=== PATIENT | male | born 1980 | race African-American/Black ===

== ENCOUNTER 2023-06-10 21:01 | Emergency (ER) | payer MEDICAID, OTHER ==
[~2023-06-10] VITALS: Ht 190.5 cm; Wt 90.0 kg
[2023-06-10 21:09] VITALS: O2SAT 100
[2023-06-10] MEDS ORDERED: METHYLPREDNISOLONE SOD SUCC 125MG/2ML (ACT-O-VIAL) IV STA (21:40)
[2023-06-10] MEDS ORDERED: IPRATROPIUM BROMIDE (0.02%) 0.5MG/2.5ML NEB HHN STA (21:40)
[2023-06-10] MEDS ORDERED: MAGNESIUM 2 G PREMIX 50 ML IV ONE (21:45)
[2023-06-10] MEDS ORDERED: LORAZEPAM 1MG TABLET PO ONE (21:45)
[2023-06-10] MEDS ORDERED: ASPIRIN 81MG TABLET PO ONE (21:45)
[2023-06-10] MEDS ORDERED: ALBUTEROL (0.083%) 2.5MG/3ML NEB HHN SCH (22:00)
[2023-06-10 22:04] LABS: BASOPHILS % 0.6 % (0.0-2.0); EOSINOPHILS % 3.2 % (0.0-5.0); HEMATOCRIT. 36.7 % (42.0-52.0); HEMOGLOBIN. 12.7 g/dL (14.0-18.0); LYMPHOCYTES % 40.8 % (20.0-50.0); MEAN CORPUSCULAR HEMOGLOBIN 30.7 pg (28.0-32.0); MEAN CORPUSCULAR HGB CONC 34.6 g/dL (31.0-37.0); MEAN CORPUSCULAR VOLUME 88.8 fL (80.0-94.0); MEAN PLATELET VOLUME 7.9 fl (7.4-10.4); NEUTROPHILS % 45.4 % (40.0-76.0); PLATELET 201 x1000/uL (130-400); RED BLOOD CELL COUNT 4.14 mill/uL (4.7-6.1); RED CELL DISTRIBUTION WIDTH 13.3 % (11.6-14.6); WHITE BLOOD COUNT 5.8 x1000/uL (4.5-11.0)
[2023-06-10 22:11] LABS: PROTHROMBIN TIME 11.1 sec (9.6-11.0)
[2023-06-10 22:16] LABS: ALANINE AMINOTRANSFERASE 21 IU/L (10-49); ALBUMIN 3.6 g/dL (3.2-4.8); ASPARTATE AMINOTRANSFERASE 33 IU/L (<34); BILIRUBIN TOTAL 0.3 mg/dL (0.1-1.0); CALCIUM 8.6 mg/dL (8.7-10.4); CARBON DIOXIDE 28 mEq/L (21-32); CHLORIDE 108 mEq/L (98-107); GLUCOSE 106 mg/dL (70-105); POTASSIUM 3.8 mEq/L (3.5-5.1); PROTEIN TOTAL 6.9 g/dL (6.0-8.3); SODIUM 143 mEq/L (136-145); TROPONIN I HIGH SENSITIVITY 6 ng/L (3.0-53); UREA NITROGEN BLOOD 22 mg/dL (9-23)
[2023-06-11 06:35] VITALS: BP 144/84; PULSE 84; RESP 19; TEMP 98
== END 2023-06-11 06:34 | disposition short-term general hospital (02) ==
LOC: ER 21:01
DX: J45.909 Unspecified asthma, uncomplicated (principal); R07.89 Other chest pain
CPT/HCPCS: 80053; 85025; 85610; 84484; 36415; 71045; 93005; 96365; 96375; 99291; Z7610 ×3; J3475; J2930

== ENCOUNTER 2024-01-04 00:10 | Emergency (ER) | payer OTHER ==
[~2024-01-04] VITALS: Ht 185.4 cm; Wt 79.0 kg
[2024-01-04 01:16] LABS: BASOPHILS % 0.5 % (0.0-2.0); EOSINOPHILS % 3.1 % (0.0-5.0); HEMATOCRIT. 44.1 % (42.0-52.0); HEMOGLOBIN. 14.3 g/dL (14.0-18.0); LYMPHOCYTES % 31.6 % (20.0-50.0); MEAN CORPUSCULAR HEMOGLOBIN 30.2 pg (28.0-32.0); MEAN CORPUSCULAR HGB CONC 32.4 g/dL (31.0-37.0); MEAN CORPUSCULAR VOLUME 93.2 fL (80.0-94.0); MEAN PLATELET VOLUME 8.5 fl (7.4-10.4); MONOCYTES % 7.9 % (2.0-8.0); NEUTROPHILS % 56.9 % (40.0-76.0); PLATELET 180 x1000/uL (130-400); RED BLOOD CELL COUNT 4.73 mill/uL (4.7-6.1); RED CELL DISTRIBUTION WIDTH 13.8 % (11.6-14.6); WHITE BLOOD COUNT 4.8 x1000/uL (4.5-11.0)
[2024-01-04 01:17] LABS: CHLORIDE 107 mEq/L (98-107); POTASSIUM 4.1 mEq/L (3.5-5.1); SODIUM 142 mEq/L (136-145)
[2024-01-04 01:18] LABS: CARBON DIOXIDE 31 mEq/L (21-32)
[2024-01-04] MEDS: METHYLPREDNISOLONE SOD SUCC 125MG/2ML (ACT-O-VIAL) IV STA (01:21)
[2024-01-04] MEDS: SODIUM CHLORIDE 0.9% 1,000 ML IV ONE (01:22)
[2024-01-04] MEDS: MAGNESIUM 2 G PREMIX 50 ML IV ONE (01:22)
[2024-01-04 01:23] LABS: GLUCOSE 80 mg/dL (70-105); UREA NITROGEN BLOOD 15 mg/dL (9-23)
[2024-01-04 01:24] LABS: TROPONIN I HIGH SENSITIVITY 6 ng/L (3.0-53)
[2024-01-04 01:28] VITALS: PULSE 84; RESP 18; O2SAT 99
[2024-01-04] MEDS: IPRATROPIUM BROMIDE (0.02%) 0.5MG/2.5ML NEB HHN STA (01:28)
[2024-01-04] MEDS: ALBUTEROL (0.083%) 2.5MG/3ML NEB HHN SCH (01:28)
[2024-01-04 01:50] VITALS: PULSE 92; RESP 18; O2SAT 99
[2024-01-04 02:12] VITALS: PULSE 82; RESP 18; O2SAT 99
[2024-01-04 05:51] LABS: *AMPHETAMINES SCREEN URINE NEGATIVE (NEGATIVE); *BARBITURATES SCREEN URINE NEGATIVE (NEGATIVE); *BENZODIAZEPINES SCREEN URINE NEGATIVE (NEGATIVE); *COCAINE SCREEN URINE PRESUMPTIVE POSITIVE (NEGATIVE); CANNABINOID URINE SCREEN NEGATIVE (NEGATIVE); ECSTASY MDMA SCREEN URINE NEGATIVE (NEGATIVE); METHADONE URINE SCREEN NEGATIVE (NEGATIVE); OPIATES URINE SCREEN NEGATIVE (NEGATIVE); PHENCYCLIDINE URINE SCREEN NEGATIVE (NEGATIVE)
[2024-01-04 06:05] VITALS: BP 125/89; PULSE 98; RESP 18; TEMP 98
[2024-01-04] MEDS ORDERED: ACETAMINOPHEN 325MG TABLET PO PRN ×2 (06:30)
[2024-01-04] MEDS ORDERED: CLONIDINE 0.1MG TABLET PO PRN (06:30)
[2024-01-04] MEDS ORDERED: GUAIFENESIN 200MG/10ML SUGAR FREE UDC PO PRN (06:30)
[2024-01-04] MEDS ORDERED: MAGNESIUM/ALUMINUM HYDROXIDE/SIMETHICONE 30ML UDC PO PRN (06:30)
[2024-01-04] MEDS ORDERED: ONDANSETRON HCL 4MG/2ML INJ IV PRN (06:30)
[2024-01-04] MEDS ORDERED: IPRATROPIUM/ALBUTEROL 0.5-3(2.5)MG/3ML NEB HHN PRN (06:30)
[2024-01-04] MEDS ORDERED: DOCUSATE SODIUM 100MG CAPSULE PO PRN (06:30)
[2024-01-04 06:40] LABS: BG BASE EXCESS 5.9 mmol/L (-2.0-2.0); BG CARBOXYHEMOGLOBIN 3.6 % (0.5-1.5); BG DEOXYHEMOGLOBIN 18.3 % (0.0-5.0); BG FRACTION INSPIRED OXYGEN 21; BG HCO3 ACT 33.6 mmol/L (22.0-26.0); BG METHEMOGLOBIN 0.3 % (0.0-1.5); BG OXYHEMOGLOBIN 77.8 % (94.0-97.0); BG PCO2 61.6 mmHg (35.0-45.0); BG PH 7.354 (7.350-7.450); BG PO2 46.2 mmHg (75.0-100.0); BG SAMPLE SITE RIGHT RADIAL; BG TOTAL HEMOGLOBIN 14.9 g/dL (12.0-18.0); BG VENT MODE ROOM AIR
[2024-01-04] MEDS: AZITHROMYCIN 500MG/250ML 250 ML IV SCH (06:57)
[2024-01-04] MEDS ORDERED: MVI, ADULT NO.1 10 ML, FOLIC ACID 1 MG, THIAMINE HCL 100 MG in SODIUM CHLORIDE 0.9% 1,0... IV ONE (08:00)
[2024-01-04] MEDS ORDERED: IPRATROPIUM/ALBUTEROL 0.5-3(2.5)MG/3ML NEB HHN SCH (12:00)
[2024-01-04] MEDS ORDERED: METHYLPREDNISOLONE SOD SUCC 125MG/2ML (ACT-O-VIAL) IV SCH (14:00)
== END 2024-01-04 07:45 | disposition short-term general hospital (02) ==
LOC: ER 00:10 → CANBEDREQ 07:44 → ER 07:45
DX: J96.91 Respiratory failure, unspecified with hypoxia (principal); J45.901 Unspecified asthma with (acute) exacerbation; F12.90 Cannabis use, unspecified, uncomplicated
CPT/HCPCS: 80305; 80048; 83880; 83605; 85025; 84484; 36415; 71045; 70450; 94640; 82805; 82375; 93005; 96367; 96365; 96366; 96375; 99291; 36600; J0456; J3475; J2919; Z7610 ×4; J7030; J3411; J3490

== ENCOUNTER 2024-01-21 23:43 | Emergency (ER) | payer OTHER ==
[~2024-01-21] VITALS: Ht 182.9 cm; Wt 80.0 kg
[2024-01-21 23:47] VITALS: TEMP 98.2
[2024-01-22 01:05] VITALS: PULSE 88; RESP 18; O2SAT 97
[2024-01-22] MEDS: ALBUTEROL (0.083%) 2.5MG/3ML NEB HHN SCH (01:06)
[2024-01-22] MEDS: IPRATROPIUM BROMIDE (0.02%) 0.5MG/2.5ML NEB HHN STA (01:06)
[2024-01-22] MEDS: MAGNESIUM 2 G PREMIX 50 ML IV ONE (01:28)
[2024-01-22] MEDS: METHYLPREDNISOLONE SOD SUCC 125MG/2ML (ACT-O-VIAL) IV STA (01:28)
[2024-01-22] MEDS: LORAZEPAM 2MG/ML INJ IV ONE (01:28)
[2024-01-22] MEDS: METHYLPREDNISOLONE SOD SUCC 125MG/2ML (ACT-O-VIAL) IV NR (03:54)
[2024-01-22] MEDS: MAGNESIUM 2 G PREMIX 50 ML IV NR (03:54)
[2024-01-22] MEDS ORDERED: P20 MT (04:00)
[2024-01-22] MEDS: LORAZEPAM 2MG/ML INJ IV NR (04:11)
[2024-01-22] MEDS ORDERED: ALBU6.7H15 INH (04:51)
[2024-01-22 05:09] VITALS: BP 134/86; PULSE 85; RESP 16; O2SAT 95
== END 2024-01-22 05:16 | disposition home or self-care (01) ==
LOC: ER 23:45
DX: J45.901 Unspecified asthma with (acute) exacerbation (principal); F12.10 Cannabis abuse, uncomplicated
CPT/HCPCS: 99291; 71045; 94644; 96365; 96375; Z7610 ×4; J3475; J2919; 94640

== ENCOUNTER 2024-02-20 22:50 | Emergency (ER) | payer OTHER ==
[~2024-02-20] VITALS: Ht 193 cm; Wt 82.0 kg
[~2024-02-20 22:50] MED LIST: ALBU6.7H15 INH; P20 MT
[2024-02-20 22:56] VITALS: TEMP 98.5
[2024-02-20] MEDS: METHYLPREDNISOLONE SOD SUCC 125MG/2ML (ACT-O-VIAL) IV STA (23:00)
[2024-02-21 00:06] LABS: BASOPHILS % 0.8 % (0.0-2.0); EOSINOPHILS % 1.4 % (0.0-5.0); HEMATOCRIT. 38.4 % (42.0-52.0); HEMOGLOBIN. 12.9 g/dL (14.0-18.0); MEAN CORPUSCULAR HEMOGLOBIN 30.5 pg (28.0-32.0); MEAN CORPUSCULAR HGB CONC 33.5 g/dL (31.0-37.0); MEAN PLATELET VOLUME 8.8 fl (7.4-10.4); MONOCYTES % 8.2 % (2.0-8.0); NEUTROPHILS % 58.6 % (40.0-76.0); PLATELET 189 x1000/uL (130-400); RED BLOOD CELL COUNT 4.22 mill/uL (4.7-6.1); RED CELL DISTRIBUTION WIDTH 13.6 % (11.6-14.6); WHITE BLOOD COUNT 5.2 x1000/uL (4.5-11.0)
[2024-02-21 00:10] LABS: CHLORIDE 105 mEq/L (98-107); POTASSIUM 3.4 mEq/L (3.5-5.1); SODIUM 141 mEq/L (136-145)
[2024-02-21 00:11] LABS: CALCIUM 8.9 mg/dL (8.7-10.4); CARBON DIOXIDE 33 mEq/L (21-32)
[2024-02-21 00:13] VITALS: PULSE 100; RESP 20; O2SAT 96
[2024-02-21] MEDS: ALBUTEROL (0.083%) 2.5MG/3ML NEB HHN STA (00:13)
[2024-02-21] MEDS: IPRATROPIUM BROMIDE (0.02%) 0.5MG/2.5ML NEB HHN STA (00:14)
[2024-02-21 00:16] LABS: GLUCOSE 137 mg/dL (70-105); UREA NITROGEN BLOOD 15 mg/dL (9-23)
[2024-02-21 00:21] LABS: ETHANOL BLOOD < 10 mg/dL (<10)
[2024-02-21] MEDS ORDERED: ALBUTEROL (0.5%) 2.5MG/0.5ML NEB HHN NR (01:45)
[2024-02-21] MEDS: MAGNESIUM 2 G PREMIX 50 ML IV NR (01:45)
[2024-02-21] MEDS: POTASSIUM CHLORIDE 20MEQ/PACKET PO NR (02:01)
[2024-02-21] MEDS: GUAIFENESIN 600MG ER TABLET PO SCH (02:01)
[2024-02-21] MEDS: METHYLPREDNISOLONE SOD SUCC 125MG/2ML (ACT-O-VIAL) IV NR (02:03)
[2024-02-21 05:24] VITALS: BP 140/59; PULSE 62; RESP 18; O2SAT 100
== END 2024-02-21 06:03 | disposition short-term general hospital (02) ==
LOC: ER 22:50
DX: J45.901 Unspecified asthma with (acute) exacerbation (principal); F17.210 Nicotine dependence, cigarettes, uncomplicated; Z20.822 Contact with and (suspected) exposure to COVID-19
CPT/HCPCS: 80048; 80320; 85025; 36415; 71045; 99285; 94640; 96365; 96366; 96375; 87426; J3475; J2919; Z7610 ×4; G0480

== ENCOUNTER 2024-03-07 06:02 | Emergency (ER) | payer OTHER ==
[~2024-03-07] VITALS: Ht 182.9 cm; Wt 86.0 kg
[2024-03-07] MEDS ORDERED: METHYLPREDNISOLONE SOD SUCC 125MG/2ML (ACT-O-VIAL) IV STA (06:04)
[2024-03-07] MEDS ORDERED: IPRATROPIUM BROMIDE (0.02%) 0.5MG/2.5ML NEB HHN STA (06:04)
[2024-03-07] MEDS ORDERED: ALBUTEROL (0.083%) 2.5MG/3ML NEB HHN STA (06:04)
== END 2024-03-07 06:20 | disposition left against medical advice (07) ==
LOC: ER 06:17
DX: J45.901 Unspecified asthma with (acute) exacerbation (principal)
CPT/HCPCS: 99283

== ENCOUNTER 2025-01-07 23:28 | Inpatient (IN) | payer OTHER ==
[~2025-01-07] VITALS: Ht 185.4 cm; Wt 78.9 kg
[2025-01-08] VITALS (7 sets, daily range): BP systolic 116–165; BP diastolic 80–99; PULSE 87–105; RESP 17–20; TEMP 36.4–37.7; O2SAT 91–98
[2025-01-08 00:28] LABS: BASOPHILS % 0.6 % (0.0-2.0); EOSINOPHILS % 4.3 % (0.0-5.0); HEMATOCRIT. 43.6 % (42.0-52.0); HEMOGLOBIN. 14.1 g/dL (14.0-18.0); LYMPHOCYTES % 33.8 % (20.0-50.0); MEAN PLATELET VOLUME 8.4 fl (7.4-10.4); MONOCYTES % 12.4 % (2.0-8.0); NEUTROPHILS % 48.9 % (40.0-76.0); PLATELET 177 x1000/uL (130-400); RED BLOOD CELL COUNT 4.84 mill/uL (4.7-6.1); RED CELL DISTRIBUTION WIDTH 13.6 % (11.6-14.6)
[2025-01-08] MEDS: SODIUM CHLORIDE 0.9% 1,000 ML IV ONE (00:29)
[2025-01-08 00:46] LABS: CREATININE 0.9 mg/dL (0.6-1.3); UREA NITROGEN BLOOD 16 mg/dL (9-23)
[2025-01-08 00:47] LABS: ETHANOL BLOOD < 10 mg/dL (<10)
[2025-01-08 02:20] LABS: INFLUENZA TYPE A Presumptive Negative (Pres. Neg.)
[2025-01-08 02:21] LABS: INFLUENZA TYPE B Presumptive Negative (Pres. Neg.)
[2025-01-08 02:22] LABS: RESPIRATORY SYNCYTIAL VIRUS Not Detected (Not Detectd)
[2025-01-08] MEDS ORDERED: IPRATROPIUM/ALBUTEROL 0.5-3(2.5)MG/3ML NEB HHN PRN (11:15)
[2025-01-08] MEDS ORDERED: ACETAMINOPHEN 325MG TABLET PO PRN ×2 (11:15)
[2025-01-08] MEDS ORDERED: CLONIDINE 0.1MG TABLET PO PRN (11:15)
[2025-01-08] MEDS ORDERED: MAGNESIUM/ALUMINUM HYDROXIDE/SIMETHICONE 30ML UDC PO PRN (11:15)
[2025-01-08] MEDS ORDERED: ONDANSETRON HCL 4MG/2ML INJ IV PRN (11:15)
[2025-01-08] MEDS ORDERED: ZOLPIDEM TARTRATE 5MG TABLET PO PRN (11:15)
[2025-01-08] MEDS ORDERED: DIPHENHYDRAMINE 50MG/ML VIAL IV PRN (11:15)
[2025-01-08] MEDS ORDERED: MECLIZINE 25MG TABLET PO PRN (11:15)
[2025-01-08] MEDS: AMLODIPINE 2.5MG TABLET PO SCH (11:30)
[2025-01-08 12:22] LABS: CLARITY URINE CLEAR (CLEAR); COLOR URINE YELLOW (YELLOW); GLUCOSE URINE NEGATIVE (NEGATIVE); KETONES URINE TRACE (NEGATIVE); LEUKOCYTE ESTERASE URINE NEGATIVE (NEGATIVE); NITRITE URINE NEGATIVE (NEGATIVE); OCCULT BLOOD URINE NEGATIVE (NEGATIVE); PH URINE 6.5 (4.5-8.0); PROTEIN URINE NEGATIVE (NEGATIVE); SPECIFIC GRAVITY URINE 1.027 (1.005-1.030); UROBILINOGEN URINE 1.0 E.U./dL (0.2-1.0)
[2025-01-08 12:38] LABS: *AMPHETAMINES SCREEN URINE NEGATIVE (NEGATIVE); *BARBITURATES SCREEN URINE NEGATIVE (NEGATIVE); *BENZODIAZEPINES SCREEN URINE NEGATIVE (NEGATIVE)
[2025-01-08 12:39] LABS: *COCAINE SCREEN URINE PRESUMPTIVE POSITIVE (NEGATIVE); CANNABINOID URINE SCREEN NEGATIVE (NEGATIVE); ECSTASY MDMA SCREEN URINE NEGATIVE (NEGATIVE); METHADONE URINE SCREEN NEGATIVE (NEGATIVE); OPIATES URINE SCREEN NEGATIVE (NEGATIVE); PHENCYCLIDINE URINE SCREEN NEGATIVE (NEGATIVE)
[2025-01-08] MEDS: SODIUM CHLORIDE 0.9% 3ML FLUSH IVF SCH (13:27)
[2025-01-08] MEDS ORDERED: PROMETHAZINE/DEXTROMETHORPHAN 6.25-15MG/5ML PO PRN (20:15)
[2025-01-08] MEDS: FAMOTIDINE 20MG TABLET PO SCH (21:01)
[2025-01-08] MEDS: GUAIFENESIN 600MG ER TABLET PO SCH (21:01)
[2025-01-08] MEDS: LOSARTAN 25 MG TABLET PO SCH (21:02)
[2025-01-08] MEDS: METHYLPREDNISOLONE SOD SUCC 40MG/ML (ACT-O-VIAL) IV SCH (22:00)
[2025-01-08] MEDS: BUDESONIDE 0.5MG/2ML NEB HHN SCH (23:01)
[2025-01-09] VITALS: BP 145/83; PULSE 104; RESP 20; TEMP 36.6; O2SAT 100
[2025-01-09 04:00] VITALS: BP 133/88; PULSE 93; RESP 18; TEMP 36.5; O2SAT 98
[2025-01-09 06:19] LABS: CREATININE 1.0 mg/dL (0.6-1.3); UREA NITROGEN BLOOD 15 mg/dL (9-23)
[2025-01-09 06:21] LABS: PHOSPHORUS 1.6 mg/dL (2.5-4.9)
[2025-01-09 08:00] VITALS: BP 99/66; PULSE 70; RESP 18; TEMP 36.7; O2SAT 99
[2025-01-09] MEDS: IPRATROPIUM/ALBUTEROL 0.5-3(2.5)MG/3ML NEB HHN SCH (09:05)
[2025-01-09 12:00] VITALS: BP 110/68; PULSE 78; RESP 18; TEMP 36.6; O2SAT 99
[2025-01-09] MEDS ORDERED: MONTELUKAST SODIUM 10MG TABLET PO SCH (17:00)
== END 2025-01-09 15:39 | disposition left against medical advice (07) | DRG 140 ==
LOC: ER 23:28 → 7WST 01-08 05:37 → EDBEDREQ 01-08 06:06 → ENRESERV 01-08 06:18
PROVIDERS: ADMIT Internal Medicine; ATTEND Internal Medicine
DX: J44.1 Chronic obstructive pulmonary disease with (acute) exacerbation (principal); J96.01 Acute respiratory failure with hypoxia; I10 Essential (primary) hypertension; F14.10 Cocaine abuse, uncomplicated; F17.200 Nicotine dependence, unspecified, uncomplicated; Z20.822 Contact with and (suspected) exposure to COVID-19; Z53.29 Procedure and treatment not carried out because of patient's decision for other reasons; Z59.00 Homelessness unspecified
CPT/HCPCS: 36415; 71045; 80048; 80305; 80320; 81003; 83735; 83880; 84100; 85025; 87420; 87426; 87804; 94070; 94640; 94664; 98960; 99285; A4606; J2919; J7030; J7626; G0480